=== PATIENT | female | born 1940 | race Hispanic/Latino ===

== ENCOUNTER 2019-12-31 05:33 | Day surgery (SDC) | payer OTHER, MEDICARE ==
[~2019-12-31] VITALS: Ht 147.3 cm; Wt 92.4 kg
[2019-12-31] VITALS (10 sets, daily range): BP systolic 144–157; BP diastolic 55–66
[~2019-12-31 05:33] MED LIST: ALEN70TA69 PO; ATOR40TA69 PO; CARV12.511 PO; DULA1.5P SQ; EMPA10TA PO; FURO20TA4 PO; GABA-531 PO; INSU100I24 SQ; LEVO75TA10 PO; LOSA50TA64 PO; MONT10TA26 PO; MULT-1296 PO; SUCR1TAB2 PO
[2019-12-31] MEDS ORDERED: SODIUM CHLORIDE 0.9% 1000ML 1,000 ML IV ONE (05:56)
[2019-12-31 06:38] LABS: BASOPHILS % (AUTO) 0.3 % (0.0-5.0); EOSINOPHILS % (AUTO) 3.4 % (0.0-8.0); HEMATOCRIT 39.7 % (36-48); LYMPHOCYTES % (AUTO) 39.4 % (21.0-51.0); MEAN CORPUSCULAR VOLUME 103.1 fL (79-99); MONOCYTES % (AUTO) 9.5 % (3.0-13.0); NEUTROPHILS % (AUTO) 47.4 % (40.0-77.0); PLATELET COUNT (AUTO) 183 K/uL (130-400); RED BLOOD CELL COUNT(AUTO) 3.85 MIL/uL (4.00-5.50); RED CELL DISTRIBUTION WIDTH 13.5 % (11.0-15.5); WHITE BLOOD COUNT (AUTO) 6.1 K/uL (4.8-10.8)
[2019-12-31 06:48] LABS: CREATININE 1.7 mg/dL (0.5-1.5); POTASSIUM 4.8 mmol/L (3.5-5.1)
[2019-12-31 06:51] LABS: APPEARANCE,URINE Clear (CLEAR); BILIRUBIN,URINE Negative (NEGATIVE); COLOR,URINE Yellow (YELLOW); GLUCOSE, URINE (UA) 500 mg/dL (NEGATIVE); KETONES,URINE Negative (NEGATIVE); LEUKOCYTE ESTERASE ,URINE Small (NEGATIVE); NITRATE,URINE Negative (NEGATIVE); OCCULT BLOOD,URINE Negative (NEGATIVE); PH,URINE 6.5 (5.0-8.0); PROTEIN,URINE 300 mg/dL (NEGATIVE); UROBILINOGEN,URINE 0.2 mg/dL (0.2-1.0)
[2019-12-31 06:52] LABS: INR 0.99 (0.85-1.15); PARTIAL THROMBOPLASTIN TIME 26.4 SEC (26.3-35.5); PROTHROMBIN TIME 10.7 SEC (9.6-11.6)
[2019-12-31 07:06] LABS: BACTERIA,URINE Rare /HPF (None Seen); RBC,URINE 0-1 /HPF (0-1); SQUAMOUS EPITHELIAL CELL,UR Few /HPF (0-2)
--- NOTE | 2019-12-31 08:45 | NUR ---
PROCEDURE PT TAKEN TO GRE TUTOR FOR SCHEDULED PROCEDURE. NO DISTRESS NOTED. PT DENIES ANY PAIN OR DISCOMFORTS
[2019-12-31] MEDS ORDERED: NICARDIPINE HCL 25 MG/10 ML ML IV ONE (08:57)
[2019-12-31] MEDS ORDERED: MIDAZOLAM HCL 1 MG/ML 2ML VIAL ONE (08:58)
[2019-12-31] MEDS ORDERED: NITROGLYCERIN 2 MG/VIAL VIAL IV ONE (08:58)
[2019-12-31] MEDS ORDERED: HEPARIN SODIUM 1000UNIT/ML 10ML VIAL ONE (08:58)
[2019-12-31] MEDS ORDERED: FENTANYL CITRATE PF 50 MCG/1 ML 2ML VIAL ONE (08:58)
[2019-12-31] MEDS ORDERED: IOHEXOL 350 MG/ML 100ML INFUS..BTL IV ONE (08:58)
[2019-12-31] MEDS ORDERED: SODIUM BICARB 50MEQ 50ML VIAL ONE (08:58)
[2019-12-31] MEDS ORDERED: LIDOCAINE HCL 2% 20ML ONE (08:59)
--- NOTE | 2019-12-31 10:10 | NUR ---
POST RECEIVED PT BACK FROM CATH LABS. S/P C VIA RIGHT RADIAL APPROACH , TRBAND IN PLACE WITH 13 ML OF AIR PER REPORT. SITE ASYMPTOMATIC, PT AWAKE AND ALERT. NO DISTRESS NOTED. PT DENIED ANY PAIN OR DISCOMFORTS VS STABLE ON ARRIVAL. PLAN OF CARE DISCUSS WITH PATIENT. CALL LIGHT WITHIN REACH
--- NOTE | 2019-12-31 10:50 | NUR ---
TRBAND REMOVED 2 ML OF AIR FROM TRBAND TO RIGHT RADIAL NO BLEEDING OR HEMATOMA TO SITE, NOW 11ML OF AIR TO SITE WILL CONTINUE TO MONITOR
--- NOTE | 2019-12-31 11:25 | NUR ---
TRBAND REMOVED 2 ML OF AIR FROM RIGHT RADIAL , PT JEFFRY WELL, NO BLEEDING OR HEMATOMA TO SITE. 9ML OF AIR REMAIN IN TRBAND
--- NOTE | 2019-12-31 11:50 | NUR ---
TRBAND REMOVED 2ML OF AIR FROM TRBAND TO RIGHT RADIAL. NO BLEEDING OR HEMATOMA TO SITE. PT JEFFRY WELL. 7ML OF AIR REMAIN
--- NOTE | 2019-12-31 12:05 | NUR ---
TRBAND REMOVED 2 ML OF AIR FROM TRBAND TO RIGHT RADIal . NO BLEEDING OR HEMATOMA TO SITE. 5ML OF AIR REMAIN
--- NOTE | 2019-12-31 12:20 | NUR ---
TRBAND REMOVED 2ML OF AIR FROM TRBAND TO RIGHT RADIAL NO BLEEDING OR HEMATOMA TO SITE. PT JEFFRY WELL. 3ML OF AIR REMAIN
--- NOTE | 2019-12-31 12:40 | NUR ---
TRBAND 2ML OF AIR REMOVE FROM TR BAND FROM RIGHT RADIAL , NO BLEEDING OR HEMATOMA TO SITE. PT JEFFRY WELL. 1ML OF AIR REMAIN.
--- NOTE | 2019-12-31 13:00 | NUR ---
TRBAND 1ML OF AIR REMOVED FROM RIGHT RADIAL TRBAND. NO BLEEDING OR HEMATOMA TO SITE. STERILE DRESSING APPLIED TO SITE. PT JEFFRY WELL.
--- NOTE | 2019-12-31 14:10 | NUR ---
dc dc instructions given over the phone to pts caregiver Clint Sim. instructed to f/u with dr. holloway. right wrist dressing dry and intact, no bleeding or hematoma to site. see post cath assessment
--- NOTE | 2019-12-31 14:25 | NUR ---
dc pt dc home via wc, no distress noted , pt denies any pain or discomforts. pt accompanied by family Clint. right wrist dressing dry and intact, no bleeding or hematoma to site. strong radial pulse bilaterally
== END 2019-12-31 14:25 | disposition home or self-care (01) ==
LOC: DAH 05:33
PROVIDERS: ATTEND Internal Medicine Cardiovascular Disease
DX: I25.10 Atherosclerotic heart disease of native coronary artery without angina pectoris (principal); I44.7 Left bundle-branch block, unspecified; E78.5 Hyperlipidemia, unspecified; E11.9 Type 2 diabetes mellitus without complications; I11.0 Hypertensive heart disease with heart failure; I50.22 Chronic systolic (congestive) heart failure; Z98.890 Other specified postprocedural states; Z79.899 Other long term (current) drug therapy
CPT/HCPCS: 36415; 71045; 80048; 81001; 82948 ×2; 85025; 85610; 85730; 93005; 93454; A4215; A4216; A4221; A4222; A4223 ×3; A4606; C1769; C1894; J1644 ×2; J2250; J3010; J3490 ×4; J7030; Q9965; Q9967; 99156; 99157

== ENCOUNTER 2024-03-28 10:42 | Emergency (ER) | payer OTHER, MEDICARE ==
[~2024-03-28] VITALS: Ht 142.2 cm; Wt 93.4 kg
[~2024-03-28 10:42] MED LIST changes: -ALEN70TA69 PO; +ALEN70TA80 PO; +MONT-39 PO; -MONT10TA26 PO
[2024-03-28 11:31] LABS: BASOPHILS # (AUTO) 0.03 K/uL (0.00-0.20); BASOPHILS % (AUTO) 0.5 % (0.0-5.0); EOSINOPHILS # (AUTO) 0.19 K/uL (0.00-0.70); EOSINOPHILS % (AUTO) 3.4 % (0.0-8.0); HEMATOCRIT 35.3 % (36-48); IMMATURE GRANULOCYTE ABSOLUTE 0.01 K/uL (0-1); LYMPHOCYTES % (AUTO) 35.6 % (21.0-51.0); MEAN CORPUSCULAR HEMOGLOBIN 33.9 pg (27.0-33.0); MEAN CORPUSCULAR HGB CONC 32.6 g/dL (32.0-36.0); MEAN CORPUSCULAR VOLUME 104.1 fL (79-99); MONOCYTES # (AUTO) 0.5 K/uL (0.1-1.0); MONOCYTES % (AUTO) 9.3 % (3.0-13.0); NEUTROPHILS # (AUTO) 2.9 K/uL (1.8-7.7); PLATELET COUNT (AUTO) 188 K/uL (130-400); RED BLOOD CELL COUNT(AUTO) 3.39 MIL/uL (4.00-5.50); RED CELL DISTRIBUTION WIDTH 13.3 % (11.0-15.5); WHITE BLOOD COUNT (AUTO) 5.6 K/uL (4.8-10.8)
[2024-03-28 11:42] LABS: CREATININE 2.8 mg/dL (0.5-1.0); POTASSIUM 5.3 mmol/L (3.5-5.1)
[2024-03-28 11:47] LABS: ALBUMIN 3.3 g/dL (3.5-5.0); BILIRUBIN,TOTAL 0.4 mg/dL (0.2-1.0); TOTAL PROTEIN, SERUM 6.8 g/dL (6.0-8.3)
[2024-03-28 12:18] LABS: APPEARANCE,URINE CLEAR (CLEAR); BILIRUBIN,URINE NEGATIVE (NEGATIVE); COLOR,URINE LIGHT-YELLOW (YELLOW); GLUCOSE, URINE (UA) 300 mg/dL (NEGATIVE); KETONES,URINE NEGATIVE (NEGATIVE); LEUKOCYTE ESTERASE ,URINE NEGATIVE Leu/uL (NEGATIVE); NITRATE,URINE NEGATIVE (NEGATIVE); OCCULT BLOOD,URINE NEGATIVE (NEGATIVE); PH,URINE 7.5 (5.0-8.0); PROTEIN,URINE 100 mg/dL (NEGATIVE); UROBILINOGEN,URINE 0.2 mg/dL (0.2-1.0)
[2024-03-28 12:26] LABS: ADD UA MICROSCOPIC YES
[2024-03-28 12:32] LABS: SQUAMOUS EPITHELIAL CELL,UR RARE /HPF (0-2)
[2024-03-28 14:44] VITALS: BP 140/57; PULSE 60; RESP 20; O2SAT 99
== END 2024-03-28 14:44 | disposition home or self-care (01) ==
LOC: EDH 10:42
DX: N17.9 Acute kidney failure, unspecified (principal); I12.9 Hypertensive chronic kidney disease with stage 1 through stage 4 chronic kidney disease, or unspecified chronic kidney disease; E11.22 Type 2 diabetes mellitus with diabetic chronic kidney disease; N18.4 Chronic kidney disease, stage 4 (severe); E78.00 Pure hypercholesterolemia, unspecified; Z79.4 Long term (current) use of insulin; Z79.84 Long term (current) use of oral hypoglycemic drugs; Z79.899 Other long term (current) drug therapy; Z90.89 Acquired absence of other organs; Z98.890 Other specified postprocedural states
CPT/HCPCS: 36415; 71045; 80053; 81001; 84484; 85025; 93005

== ENCOUNTER 2024-12-04 08:07 | Day surgery (SDC) | payer OTHER, MEDICARE ==
[2024-12-02 10:21] LABS: BASOPHILS # (AUTO) 0.04 K/uL (0.00-0.20); BASOPHILS % (AUTO) 0.5 % (0.0-5.0); EOSINOPHILS # (AUTO) 0.33 K/uL (0.00-0.70); EOSINOPHILS % (AUTO) 4.3 % (0.0-8.0); HEMATOCRIT 37.6 % (36-48); IMMATURE GRANULOCYTE ABSOLUTE 0.02 K/uL (0-1); LYMPHOCYTES # (AUTO) 2.2 K/uL (1.0-4.8); LYMPHOCYTES % (AUTO) 28.8 % (21.0-51.0); MEAN CORPUSCULAR HEMOGLOBIN 33.2 pg (27.0-33.0); MEAN CORPUSCULAR HGB CONC 31.6 g/dL (32.0-36.0); MONOCYTES # (AUTO) 0.7 K/uL (0.1-1.0); MONOCYTES % (AUTO) 8.4 % (3.0-13.0); NEUTROPHILS # (AUTO) 4.5 K/uL (1.8-7.7); NEUTROPHILS % (AUTO) 57.7 % (40.0-77.0); PLATELET COUNT (AUTO) 193 K/uL (130-400); RED BLOOD CELL COUNT(AUTO) 3.58 MIL/uL (4.00-5.50); RED CELL DISTRIBUTION WIDTH 13.7 % (11.0-15.5); WHITE BLOOD COUNT (AUTO) 7.8 K/uL (4.8-10.8)
[2024-12-02 10:25] VITALS: BP 149/64; PULSE 74; RESP 16; TEMP 97.9
[2024-12-02 10:30] LABS: CREATININE 3.1 mg/dL (0.5-1.0); POTASSIUM 4.2 mmol/L (3.5-5.1)
[2024-12-02 10:39] LABS: INR 1.03 (0.85-1.15); PROTHROMBIN TIME 10.9 SEC (9.6-11.6)
[2024-12-02 10:40] LABS: PARTIAL THROMBOPLASTIN TIME 26.7 SEC (26.3-35.5)
[2024-12-02 10:49] LABS: B-TYPE NATRIURETIC PEPTIDE 178 pg/mL (0-100)
[2024-12-02 11:08] LABS: APPEARANCE,URINE CLEAR (CLEAR); BILIRUBIN,URINE NEGATIVE (NEGATIVE); COLOR,URINE COLORLESS (YELLOW); GLUCOSE, URINE (UA) 300 mg/dL (NEGATIVE); KETONES,URINE NEGATIVE (NEGATIVE); LEUKOCYTE ESTERASE ,URINE NEGATIVE Leu/uL (NEGATIVE); NITRATE,URINE NEGATIVE (NEGATIVE); OCCULT BLOOD,URINE NEGATIVE (NEGATIVE); PROTEIN,URINE 70 mg/dL (NEGATIVE); UROBILINOGEN,URINE 0.2 mg/dL (0.2-1.0)
[2024-12-02 11:18] LABS: ADD UA MICROSCOPIC YES
[2024-12-02 11:42] LABS: BACTERIA,URINE RARE /HPF (None Seen); MUCUS,URINE RARE LPF (None Seen); SQUAMOUS EPITHELIAL CELL,UR MOD /HPF (0-2); WBC,URINE 0-1 /HPF (0-1)
--- NOTE | 2024-12-02 12:04 | EKG ---
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
--- NOTE | 2024-12-02 17:12 | HMCIMG ---
CHEST 1VW HISTORY: Preop COMPARISON: 03/28/2024 FINDINGS: A frontal projection of the chest was obtained. No acute pulmonary infiltrates is seen. The heart is borderline enlarged. Prominent interstitial markings are seen. Degenerative changes are seen. No evidence of aortic calcification is seen. IMPRESSION: 1. No acute pulmonary infiltrate is seen.
--- NOTE | 2024-12-03 11:34 | NUR ---
RE: LABS REPORTED BMP RESULTS TO DR JAIME, NO NEW ORDERS RECEIVED.
[~2024-12-04] VITALS: Ht 147.3 cm; Wt 96.3 kg
[2024-12-04] VITALS (7 sets, daily range): BP systolic 147–178; BP diastolic 51–70; PULSE 61–82; RESP 7–18; TEMP 97–97.1
[~2024-12-04 08:07] MED LIST changes: -ALEN70TA80 PO; +AMLO2.5T4 PO; +BUME1TAB6 PO; +CALC-1267 PO; +DULA0.75 SQ; -DULA1.5P SQ; -EMPA10TA PO; +EMPA25TA PO; -FURO20TA4 PO; +HYDR25TA PO; -INSU100I24 SQ; +INSU100V37 SQ; +INSU100V45 SQ; -LOSA50TA64 PO; -MULT-1296 PO; +SACU1TAB PO; +SODI10PO2 PO; +SODI650T PO
[2024-12-04] MEDS: 0.9%NACL 1000ML 1,000 ML IV SCH (08:46)
[2024-12-04] MEDS ORDERED: SODIUM BICARB 50MEQ 50ML VIAL 50 ML ONE (13:54)
[2024-12-04] MEDS ORDERED: LIDOCAINE HCL 400MG/20ML VIAL ONE (13:54)
[2024-12-04] MEDS ORDERED: HEParin-NS 1,000 UNIT/500 ML 1,000 ML IV ONE (13:55)
[2024-12-04] MEDS ORDERED: IODIXANOL 320 MG/ML 100 ML VIAL ONE (13:55)
[2024-12-04] MEDS ORDERED: HEParin 10,000 UNIT/10ML (1,000 UNIT/ML) VIAL ONE (13:55)
[2024-12-04] MEDS ORDERED: NITROGLYCERIN 50MG VIAL ONE (13:55)
[2024-12-04] MEDS ORDERED: FENTanyl CITRate PF 50 MCG/1 ML 2ML VIAL ONE (14:25)
[2024-12-04] MEDS ORDERED: MIDAZOLAM HCL 1 MG/ML 2ML VIAL ONE (14:26)
[2024-12-04] MEDS ORDERED: ASPI-1443 PO (16:08)
[2024-12-04] MEDS ORDERED: CLOP75TA32 PO (16:08)
[2024-12-04] MEDS ORDERED: cloPIDOgrel 300MG TAB ONE (16:16)
[2024-12-04] MEDS ORDERED: ASPIRIN 325MG EC TAB PO ONE (16:16)
--- NOTE | 2024-12-04 16:27 | PRN ---
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 For that reason, investigation was limited to intravascular ultrasound assessment of the iliofemoral venous system on both sides. The patient was brought to the lab in a fasting state after informed consent and sedated with 1 mg Versed and 50 mcg fentanyl-see computerized procedural notes for timing and monitoring of moderate conscious sedation. Under local anesthesia with 1% lidocaine using micropuncture technique under fluoroscopic guidance a right posterior jugular approach was used to access the central venous system. A nine Bulgarian sheath was inserted. Over an advantage Glidewire a intravascular ultrasound catheter was advanced to the right common femoral and we measured the veins from common femoral to inferior vena cava. I personally performed the acquisition of images, selected the images for interpretation, performed the measurements personally and interpreted the results. We administered 5000 units aqueous heparin, 600 mg clopidogrel, and 325 mg aspirin and we exchanged the caitlyn for a Medtronic Abre venous stent system 14 x 150 mm in size. This was deployed from distal external iliac to the origin of the com mon iliac vein. Results were inspected by intravascular ultrasound and we exchanged for a magic torque shapable 035 wire which was positioned in the left superficial femoral vein. Intravascular ultrasound was again performed from left common femoral to IVC, and again I performed the acquisition of images, selected images from measurement, performed the measurements, and interpreted the results. We exchanged for a 14 x 120 mm Medtronic venous self expanding stent system which was deployed from distal external iliac through the external iliac. Again results were inspected by intravascular ultrasound and the apparatus was removed. The patient was sat upright and the venous sheath was removed and hemostasis was obtained by direct digital pressure. No compl ications occurred. Results: Intravascular measurements were as follows: Inferior vena cava reference area 167 mm, diameter 15.2 mm. Right common iliac vein reference area 107 mm, diameter 12 mm. Right external iliac vein reference area 103 mm, diameter 11.9 mm Right external iliac compression area 47.7, diameter 9.2. Compression % stenosis is 53.7% as compared to external iliac vein reference and 66.2% as compared to proximal common femoral vein reference area. Post stent external iliac vein area is 122 mm with diameter 12.6 mm-a net gain in reference area of 22% with 0% residual. Right common femoral vein reference area 141 mm, diameter 13.6 mm Left common iliac vein reference area was 136 mm with diameter 13.1 mm. At the ostium there is a questionable 78.2 mm reference area with diameter 10.1 mm, but on close scrutiny it appeared that a few struts from the right common iliac vein stent may be create in an artifactual impression of nearly as the rest of the left common iliac vein appeared normal. If correct, this would be a 42.6% compression stenosis, still not significant. Left external iliac vein reference area is 102.4 mm with diameter 12.1 mm. Left external iliac vein compression area is 59.4 mm with diameter 9.1 mm, 42% stenosis as compared to external iliac vein but 65% stenosis as compared to the external iliac vein/common femoral vein junction. Post stent external iliac vein area is 114.6, diameter 12 mm, 0% residual with a 13% gain as compared to the pre stent reference area. Left common femoral vein reference area is 170 mm with diameter 15.6 mm. 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 ALEXANDRO JAIME MD Dec 04, 2024 16:27
== END 2024-12-04 18:20 | disposition home or self-care (01) ==
LOC: DAH 08:07
PROVIDERS: ATTEND Internal Medicine Cardiovascular Disease
DX: I87.1 Compression of vein (principal); I87.2 Venous insufficiency (chronic) (peripheral); I10 Essential (primary) hypertension; E11.9 Type 2 diabetes mellitus without complications; E78.2 Mixed hyperlipidemia; I44.7 Left bundle-branch block, unspecified; E66.01 Morbid (severe) obesity due to excess calories; Z68.42 Body mass index [BMI] 45.0-49.9, adult; Z79.01 Long term (current) use of anticoagulants; Z79.899 Other long term (current) drug therapy
CPT/HCPCS: 80048; 83880; 85025; 85610; 85730; 81001; 36415; 71045; 93005; 37238; 37239; 37252; 37253 ×2; 82948 ×2; C1876 ×2; C1769 ×2; C1894 ×2; C1753; J3010; J3490 ×3; J7030; J1644 ×2; J2250; Q9967; A4215; A4222; A4221; A4663; A4216; A4606; A4223 ×3; 36012; 75822; 99156; 99157